=== PATIENT | male | born 1995 | race Caucasian/White ===

== ENCOUNTER 2017-09-03 13:15 | Emergency (ER) | payer OTHER ==
[2017-09-03 13:56] VITALS: BP 156/88
--- NOTE | 2017-09-03 15:04 | ED ---
Respiratory - HPI Summary HPI Summary: 22 yr old with cough for almost two weeks. non productive. Associated with some mild sore throat; denies nasal congestion, fever, chills. He works with [email or web address] for a living. Non smoker. - History of Current Complaint Chief Complaint: UCRespiratory Stated Complaint: COUGH Time Seen by Provider: 09/03/17 14:46 Pain Intensity: 0 - Allergy/Home Medications Allergies/Adverse Reactions: Allergies Allergy/AdvReac Type Severity Reaction Status Date / Time No Known Allergies Allergy Verified 09/03/17 13:51 PMH/Surg Hx/FS Hx/Imm Hx Cardiovascular History: Reports: Hx Hypertension - d/c'd lisinopril due to drowsiness - Surgical History Surgery Procedure, Year, and Place: Right Wrist Ganglion, ~2012, [facility] Infectious Disease History: No Infectious Disease History: Denies: Traveled Outside the in Last 30 Days - Family History Known Family History: Positive: None - Social History Occupation: Employed Full-time Lives: With Family Alcohol Use: Occasionally Substance Use Type: Reports: None Smoking Status (MU): Light Every Day Tobacco Smoker Type: eCigarettes Length of Time of Smoking/Using Tobacco: Since Age 16 Review of Systems Negative: Fever, Chills Positive: Sore Throat Positive: Cough All Other Systems Reviewed And Are Negative: Yes Physical Exam Triage Information Reviewed: Yes Vital Signs On Initial Exam: Initial Vitals Temp Pulse Resp BP Pulse Ox 98.8 F 82 16 156/88 99 09/03/17 13:51 09/03/17 13:51 09/03/17 13:51 09/03/17 13:51 09/03/17 13:51 Vital Signs Reviewed: Yes Appearance: Positive: Well-Appearing, No Pain Distress Skin: Positive: Warm, Skin Color Reflects Adequate Perfusion Head/Face: Positive: Normal Head/Face Inspection Eyes: Positive: EOMI ENT: Positive: Pharyngeal erythema, TMs normal. Negative: Nasal congestion, Nasal drainage Neck: Positive: Nontender Respiratory/Lung Sounds: Positive: Clear to Auscultation, Breath Sounds Present Cardiovascular: Positive: RRR. Negative: Murmur Abdomen Description: Positive: Nontender Musculoskeletal: Positive: Strength/ROM Intact Neurological: Positive: Sensory/Motor Intact, Alert, Oriented to Person Place, Time, CN Intact II-III Psychiatric: Positive: Normal - W[place]rop Coma Scale Best Eye Response: 4 - Spontaneous Best Motor Response: 6 - Obeys Commands Best Verbal Response: 5 - Oriented Coma Scale Total: 15 Diagnostics - Vital Signs Vital Signs Temp Pulse Resp BP Pulse Ox 09/03/17 13:51 98.8 F 82 16 156/88 99 - Laboratory Lab Statement: Any lab studies that have been ordered have been reviewed, and results considered in the medical decision making process. Disposition - Course Course Of Treatment: 22 yr old male with URI, cough symptoms. Demetria larson and nguyễn. - Diagnoses Provider Diagnoses: Cough Discharge - Discharge Plan Condition: Good Disposition: HOME Prescriptions: Albuterol HFA INHALER* [Ventolin HFA Inhaler*] 1 - 2 puff INH Q6H PRN #1 mdi PRN Reason: Cough Benzonatate CAP* [Tessalon 100 MG CAP*] 100 mg PO TID #14 cap Patient Education Materials: Hypertension (ED), Acute Cough (ED) Forms: *Work Release Referrals: HILARIA Bob [Primary Care Provider] -
== END 2017-09-03 15:02 | disposition home or self-care (01) ==
LOC: UCCORT 13:15
DX: R05 Cough (principal); F17.290 Nicotine dependence, other tobacco product, uncomplicated
CPT/HCPCS: 99202; G0463

== ENCOUNTER 2017-10-29 16:13 | Emergency (ER) | payer OTHER ==
[2017-10-29 16:52] VITALS: BP 153/81
--- NOTE | 2017-10-29 17:47 | UC ---
UC General HPI - HPI Summary HPI Summary: PT C/O N/V/D AND BODY ACHES. BEGAN ON FRIDAY, BUT IS IMPROVING. NO HX TRAVEL, RECENT ANTIBIOTICS OR RAW SEAFOOD. WANTS TO ENSURE NOT THE FLU. GIRLFRIEND AND HER CHILD HAD THAT RECENTLY. NO ABDOMINAL PAIN OR FEVER. - History of Current Complaint Hx Obtained From: Patient Pain Intensity: 0 Aggravating: NOTHING Alleviating: NOTHING Associated Signs & Symptoms: Positive: Diarrhea, Nausea, Vomiting, Other - CONGESTION. Negative: Abdominal Pain, Fever <Jolly Hutchinson - Last Filed: 10/29/17 17:47> <Shamika Zuñiga - Last Filed: 10/29/17 18:03> - History of Current Complaint Chief Complaint: UCGeneralIllness Stated Complaint: FLU SYMPTOMS Time Seen by Provider: 10/29/17 17:42 - Allergy/Home Medications Allergies/Adverse Reactions: Allergies Allergy/AdvReac Type Severity Reaction Status Date / Time No Known Allergies Allergy Verified 10/29/17 16:52 Home Medications: Home Medications NK [No Home Medications Reported] 10/29/17 [History Confirmed 10/29/17] PMH/Surg Hx/FS Hx/Imm Hx Previously Healthy: Yes - Surgical History Surgical History: Yes Surgery Procedure, Year, and Place: Right Wrist Ganglion, ~2012, [facility] - Family History Known Family History: Positive: None - Social History Occupation: Employed Full-time Alcohol Use: Occasionally Substance Use Type: None Smoking Status (MU): Light Every Day Tobacco Smoker Type: Cigarettes Amount Used/How Often: 1/2 ppd Length of Time of Smoking/Using Tobacco: Since Age 16 - Immunization History Vaccination Up to Date: Yes <Jolly Hutchinson - Last Filed: 10/29/17 17:47> Review of Systems Constitutional: Negative Skin: Negative Eyes: Negative ENT: Sinus Congestion Respiratory: Negative Cardiovascular: Negative Gastrointestinal: Vomiting, Diarrhea, Nausea Genitourinary: Negative Motor: Negative Neurovascular: Negative Musculoskeletal: Myalgia Neurological: Negative Psychological: Negative Is Patient Immunocompromised?: No All Other Systems Reviewed And Are Negative: Yes <Jolly Hutchinson - Last Filed: 10/29/17 17:47> Physical Exam Triage Information Reviewed: Yes Appearance: Well-Appearing Vital Signs: Initial Vital Signs Temp 97.5 F 10/29/17 16:47 Pulse 85 10/29/17 16:47 Resp 18 10/29/17 16:47 BP 153/81 10/29/17 16:47 Pulse Ox 99 10/29/17 16:47 Vital Signs Reviewed: Yes Eyes: Positive: Conjunctiva Clear ENT: Positive: Pharynx normal, TMs normal. Negative: Nasal congestion, Nasal drainage Neck: Positive: Supple, Nontender, No Lymphadenopathy Respiratory: Positive: Lungs clear, Normal breath sounds Cardiovascular: Positive: RRR, No Murmur Abdomen Description: Positive: Nontender, No Organomegaly, Soft. Negative: Distended, Guarding Bowel Sounds: Positive: Present Neurological: Positive: Alert Psychological: Positive: Age Appropriate Behavior Skin Exam: Normal <Jolly Hutchinson - Last Filed: 10/29/17 17:47> Vital Signs: Initial Vital Signs Temp 97.5 F 10/29/17 16:47 Pulse 85 10/29/17 16:47 Resp 18 10/29/17 16:47 BP 153/81 10/29/17 16:47 Pulse Ox 99 10/29/17 16:47 <Shamika Zuñiga - Last Filed: 10/29/17 18:03> Diagnostics - Laboratory Diagnostic Studies Completed/Ordered: RAPID FLU=NEG <Jolly Hutchinson - Last Filed: 10/29/17 17:47> Course/Dx - Course Course Of Treatment: NON TOXIC, NO ACUTE ABDOMEN. RAPID FLU NEGATIVE AND PT FEELING BETTER. NO RISK FOR C=DIFF COLITIS, BACTERIAL DIARRHEA OR PARASITES. BP ELEVATED, REMOTE HX HTN. PT PRESCRIBED MEDICATION BUT WILL NOT TAKE IT. - Differential Dx - Multi-Symptom Provider Diagnoses: VOMITING. DIARRHEA <Jolly Hutchinson - Last Filed: 10/29/17 17:47> Discharge - Sign-Out/Discharge Documenting (check all that apply): Discharge - Billing Disposition and Condition Condition: STABLE Disposition: HOME <Jolly Hutchinson - Last Filed: 10/29/17 17:47> - Billing Disposition and Condition Condition: STABLE Disposition: HOME <Shamika Zuñiga - Last Filed: 10/29/17 18:03> - Discharge Plan Condition: Stable Disposition: HOME Patient Education Materials: Acute Nausea and Vomiting in Children (ED), Acute Diarrhea (ED) Forms: *Work Release Referrals: HILARIA Bob [Primary Care Provider] - 5 Days Attestation Statement User Type: Provider - I was available for consult. This patient was seen by the [facility]. The patient was not presented to, seen by, or examined by me. Lelia <Shamika Zuñiga - Last Filed: 10/29/17 18:03>
== END 2017-10-29 17:56 | disposition home or self-care (01) ==
LOC: UCCORT 16:13
DX: R11.2 Nausea with vomiting, unspecified (principal); R19.7 Diarrhea, unspecified; F17.210 Nicotine dependence, cigarettes, uncomplicated
CPT/HCPCS: 87502; 99211; G0463